=== PATIENT | male | born 1960 | race Caucasian/White ===

== ENCOUNTER 2017-03-14 10:34 | Day surgery (SDC) | payer MEDICAID ==
[~2017-03-14 10:34] MED LIST: Metoclopramide 10 MG/2 ML SDV IV PRN; Sodium Chloride 0.9% 1,000 ML IV SCH; Sodium Chloride 0.9% 10 ML Syringe FLUSH PRN
[2017-03-14] MEDS ORDERED: Propofol 200 MG/20 ML SDV ONE (12:00)
[2017-03-14 14:15] VITALS: BP 94/55
--- NOTE | 2017-03-14 16:07 | OR ---
DATE OF OPERATION: 03/14/2017 PREOPERATIVE DIAGNOSIS: Stage 4 colorectal cancer. POSTOPERATIVE DIAGNOSIS: Normal colonoscopy. OPERATION: Surveillance colonoscopy. COMPLICATIONS: None. DRAINS: None. SPECIMENS: None. ESTIMATED BLOOD LOSS: Zero. ANESTHESIA: General propofol anesthesia. INDICATION: Mr. Beavers is a 56-year-old gentleman, whom I scoped approximately a year ago and found a right-sided colonic mass. He subsequently underwent CT scan, which suggested a colonic tumor deposit within the liver. He underwent a right hemicolectomy and non- anatomical liver resection by me and then subsequently was treated with postoperative adjuvant chemotherapy. He has done very well since and is here for his 1-year surveillance colonoscopy. The above-mentioned procedure was explained. The risks, benefits, and complications were explained. The patient understood and agreed and he was brought to the operating room. DESCRIPTION OF PROCEDURE: The patient was brought to the operating room and placed in the left lateral decubitus position on the operating room table. Satisfactory general propofol anesthesia was administered. We began by performing a rectal examination, which was within normal limits. I then placed the endoscope by a finger introduction into the rectum and subsequently advanced this to the level of the ileocolonic anastomosis, which was at the level of the proximal transverse colon. The anastomosis appeared satisfactory. We were able to enter the small bowel and there was no abnormalities identified. The anastomosis was widely patent with active enteric juice entering the large bowel. Next, we carefully evaluated the mucosa of the large bowel and this was performed on withdrawal. There were no polyps, no neoplastic growths, no diverticula or telangiectasias. The prep was good. Then after lavage, the views were excellent. Careful evaluation revealed no other findings. I then performed a retroflexion maneuver within the rectum, which was within normal limits. The colon was then decompressed and the endoscope was withdrawn. The patient tolerated the procedure well. There were no complications. Instrument count was correct. The patient was awoken in the OR and taken to the PACU for recovery. Recommend next surveillance colonoscopy in 3 years or as per Oncology. KIMBER/PAULINE /[id number]
== END 2017-03-14 13:56 | disposition home or self-care (01) ==
LOC: LB.SDS 10:34
PROVIDERS: ATTEND Surgery
DX: Z12.11 Encounter for screening for malignant neoplasm of colon (principal)
CPT/HCPCS: 45378; J2704; J7040

== ENCOUNTER 2020-06-16 10:24 | Day surgery (SDC) | payer BC ==
[~2020-06-16 10:24] MED LIST changes: -Sodium Chloride 0.9% 10 ML Syringe FLUSH PRN
[2020-06-16] MEDS ORDERED: Propofol 200 MG/20 ML SDV ONE (14:20)
--- NOTE | 2020-06-16 15:15 | OR ---
DATE OF OPERATION: 06/16/2020 SURGEON: Bravo Sagastume MD PREOPERATIVE DIAGNOSIS: Personal history of colon cancer. POSTOPERATIVE DIAGNOSIS: Personal history of colon cancer. PROCEDURE: Surveillance colonoscopy. ANESTHESIA: MAC. ESTIMATED BLOOD LOSS: None. COMPLICATIONS: None. INDICATION FOR THE PROCEDURE: The patient is a 59-year-old male who approximately 4 years ago was found to have colorectal cancer. He did undergo a right hemicolectomy. He did have normal 1 year followup colonoscopy. He is here today for his 3-year followup. Otherwise, denies any change in bowel habits. DESCRIPTION OF PROCEDURE: Informed consent was obtained from the patient. The patient was taken to the operating room and placed on table in left lateral decubitus position. Monitored anesthesia care was administered. Digital rectal exam performed, it was normal. Colonoscope then advanced through the anus directed toward the ileocolonic anastomosis. This was widely patent and appeared healthy. Single permanent stitch was noted. Colonoscope then slowly withdrawn. He did have a few small diverticula in the sigmoid and descending colon. Otherwise, no masses, no polyps, no cancer, no areas of ischemia or inflammation identified. Rectum was also otherwise unremarkable. Colonoscope then withdrawn. FINDINGS: History of right hemicolectomy with healthy anastomosis and mild diverticulosis. RECOMMENDATIONS: We would recommend repeat surveillance colonoscopy in 5 years. MARK/PAULINE /[id number]
[2020-06-16 17:45] VITALS: BP 102/63; PULSE 66
== END 2020-06-16 15:48 | disposition home or self-care (01) ==
LOC: LB.SDS 10:24
PROVIDERS: ATTEND Surgery
DX: Z12.11 Encounter for screening for malignant neoplasm of colon (principal); K57.30 Diverticulosis of large intestine without perforation or abscess without bleeding; I10 Essential (primary) hypertension; Z98.0 Intestinal bypass and anastomosis status; Z90.49 Acquired absence of other specified parts of digestive tract; Z85.038 Personal history of other malignant neoplasm of large intestine; Z88.8 Allergy status to other drugs, medicaments and biological substances; Z79.899 Other long term (current) drug therapy
CPT/HCPCS: 45378; J2704; J7030

== ENCOUNTER 2025-05-16 07:53 | Day surgery (SDC) | payer BC ==
[2025-05-16] MEDS ORDERED: Propofol 500 MG/50 ML SDV ONE (09:35)
[2025-05-16 10:14] VITALS: BP 120/70; PULSE 50
== END 2025-05-16 11:21 | disposition home or self-care (01) ==
LOC: LB.SDS 07:53
PROVIDERS: ATTEND Surgery
DX: Z12.11 Encounter for screening for malignant neoplasm of colon (principal); K63.5 Polyp of colon; I10 Essential (primary) hypertension; Z88.8 Allergy status to other drugs, medicaments and biological substances; Z79.899 Other long term (current) drug therapy; Z85.038 Personal history of other malignant neoplasm of large intestine
CPT/HCPCS: 45385; J2704; J7030

== ENCOUNTER 2025-06-13 17:25 | Emergency (ER) | payer BC ==
[2025-06-13] MEDS: Ketorolac 30 MG/ML SDV IM ONE (18:12)
[2025-06-13 18:17] LABS: APPEARANCE,URINE CLEAR (CLEAR); GLUCOSE,URINE NEGATIVE (NEGATIVE); OCCULT BLOOD,URINE SMALL (NEGATIVE)
[2025-06-13 18:19] LABS: EPITHELIAL CELLS,URINE RARE /HPF
[2025-06-13 18:19] LABS: BASOPHILS ABSOLUTE AUTO 0.06 K/uL (0.02-0.10); BASOPHILS PERCENT AUTO 0.6 % (0.0-0.5); EOSINOPHILS ABSOLUTE AUTO 0.07 K/uL (0.04-0.40); EOSINOPHILS PERCENT AUTO 0.7 % (1.0-5.0); LYMPHOCYTES ABSOLUTE AUTO 1.70 K/uL (1.50-4.00); LYMPHOCYTES PERCENT AUTO 16.6 % (20.0-40.0); MEAN PLATELET VOLUME 9.4 fL (6.0-10.0); MONOCYTES ABSOLUTE AUTO 0.77 K/uL (0.20-0.80); MONOCYTES PERCENT AUTO 7.5 % (3.0-10.0); NEUTROPHILS ABSOLUTE AUTO 7.62 K/uL (2.00-7.50); NEUTROPHILS PERCENT AUTO 74.6 % (45.0-70.0); PLATELET COUNT,PLT 158 K/uL (150-400); RED BLOOD CELL COUNT 4.59 M/uL (4.50-6.50); RED CELL DISTRIBUTION WIDTH 12.5 % (11.0-16.0); WHITE BLOOD CELL COUNT,WBC 10.2 K/uL (4.0-11.0)
[2025-06-13 18:27] LABS: BLOOD UREA NITROGEN,BUN 17.0 mg/dL (8-26); CARBON DIOXIDE,CO2 25.0 mmol/L (21.0-32.0); CHLORIDE,CL 106.0 mmol/L (98-107); CREATININE 1.77 mg/dL (0.70-1.30); EST CRCL DRUG DOSING (CG) 43.27 mL/min; ESTIMATED GFR 43.0 mL/min (>60); GLUCOSE RANDOM 99.0 mg/dL (74-100); POTASSIUM,K 4.6 mmol/L (3.5-5.1); SODIUM,NA 137.0 mmol/L (136-145)
[2025-06-13] MEDS ORDERED: Acetaminophen/HYDROcodone 325-5 MG Tab ONE (20:30)
[2025-06-13 21:11] VITALS: BP 142/89; PULSE 64
== END 2025-06-13 20:50 | disposition home or self-care (01) ==
LOC: LB.ED 17:25
DX: N20.2 Calculus of kidney with calculus of ureter (principal); I10 Essential (primary) hypertension; Z88.0 Allergy status to penicillin; Z88.8 Allergy status to other drugs, medicaments and biological substances; Z79.899 Other long term (current) drug therapy; Z90.49 Acquired absence of other specified parts of digestive tract
CPT/HCPCS: 36415; 74176; 80048; 81001; 83690; 85025; 96372; 99284; A9270-GY; J1885